=== PATIENT | male | born 1945 | race Caucasian/White ===

== ENCOUNTER 2018-02-03 21:53 | Emergency (ER) | payer MEDICARE ==
[~2018-02-03 21:53] MED LIST: Iopamidol 370 76% 125 ML VIAL FS ONE; Sodium Chloride 0.9% 1,000 ML BAG ONE
[2018-02-03] MEDS ORDERED: Ondansetron PF 4 MG/2 ML Vial ONE (22:13)
[2018-02-03 22:17] LABS: #Basophils 0.1 thou/uL (0.0-0.2); #Eosinphils 0.4 thou/uL (0.0-0.7); #Monocytes 0.5 thou/uL (0.11-0.59); #Neutrophils 4.5 thou/uL (1.40-6.50); %Basophils 1.2 % (0.0-1.0); %Eosinophils 4.9 % (0.0-10.0); %Lymphocytes 27.4 % (21.0-51.0); %Monocytes 6.2 % (0.0-10.0); %Neutrophils 60.3 % (42.0-75.0); Hemoglobin 16.5 g/dL (14.0-18.0); Mean Corpuscular HGB CONC 33.4 g/dL (32.0-36.0); Mean Corpuscular Volume 92.8 fL (78.0-98.0); Mean Platelet Volume 9.8 fL (7.4-10.4); Platelet Count 134 thou/uL (130-400); Red Blood Cell (RBC) Count 5.32 mill/uL (4.70-6.10); White Blood Cell (WBC) Count 7.4 thou/uL (4.8-10.8)
--- NOTE | 2018-02-03 22:18 | RAD ---
CHEST ONE VIEW SEMIUPRIGHT PORTABLE: 02/03/18 HISTORY: 72-year-old male with history of syncope. COMPARISON: 07/10/16. Implantable device overlies the left chest. Heart size is within normal limits. No confluent pneumoni a, overt edema, or pleural effusion. IMPRESSION: No acute intrathoracic disease. Stable from prior study. POS: [facility]
[2018-02-03 22:38] LABS: Anion Gap 19 mmol/L (10-20); BUN (Urea Nitrogen) 31 mg/dL (8.4-25.7); CK (CPK) 454 U/L (30-200); Calc. Creatinine Clearance 0 mL/min (70-130); Calcium 9.5 mg/dL (7.8-10.44); Carbon Dioxide 18 mmol/L (23-31); Chloride 108 mmol/L (98-107); Estimated GFR-MDRD 40; Glucose 183 mg/dL (83-110); Potassium 4.4 mmol/L (3.5-5.1); Sodium 141 mmol/L (136-145)
[2018-02-03 22:39] LABS: Troponin I 0.042 ng/mL (< 0.028)
--- NOTE | 2018-02-03 23:23 | CT ---
BRAIN CT WITHOUT IV CONTRAST: 02/03/18 HISTORY: 72-year-old male with history of syncope. No focal mass or midline shift. No intra or extra-axial hemorrhage. 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 IMPRESSION: No mass, bleed or other acute process. Stable from 07/10/16. POS: [facility]
[2018-02-03] MEDS ORDERED: Enoxaparin Sodium 40 MG/0.4 ML SYRINGE ONE (23:59)
[2018-02-03] MEDS ORDERED: cefTRIAXone\\ROCEPHIN 1 GM VIAL ONE (23:59)
[2018-02-03] MEDS ORDERED: Enoxaparin Sodium 60 MG/0.6 ML SYRINGE ONE (23:59)
--- NOTE | 2018-02-04 11:08 | CT ---
PRELIMINARY REPORT/[facility]/EMERGENCY AFTER HOURS PROCEDURE: Addendum created by Russ Gomes MD on 02/04/2018 1:24 AM Central Time ([place] & [place]) THIS REPORT CONTAINS FINDINGS THAT MAY BE CRITICAL TO PATIENT CARE. The findings were verbally communicated via telephone conference with JOHN Narvaez at 1:09 AM [employer] on 02/04/2018. The findings were acknowl edged and understood. Initial Report created on 02/04/2018 1:14 AM Central Time ([place] & [place]) EXAM: CT Angiography Chest With Intravenous Contrast EXAM DATE/TIME: 02/04/2018 12:19 AM CLINICAL HISTORY: 72 years old, male; Signs and symptoms; Shortness of breath and other: Syncope; Prior surgery; Surger y date: <1 month; Surgery type: C-spine, visible healing scar on back of neck TECHNIQUE: Axial computed tomographic angiography images of the chest with intravenous contrast using CT angiogr aphy protocol. Coronal and sagittal reformatted images were created and reviewed. MIP reconstructed i mages were created and reviewed. CONTRAST: 120 ml of ISOVUE 370 administered intravenously. COMPARISON: No relevant prior studies available. FINDINGS: Pulmonary arteries: Adequate contrast enhancement of the pulmonary arteries. Abnormal filling defects - Thin saddle embolus crosses the main, right and left pulmonary arteries. Numerous emboli within th e right and left pulmonary arterial vessels. Thrombus extends into ascending-descending pulmonary arteries to all lobes and numerous segmental arteries. Aorta: No evidence of thoracic aortic dissection. Lungs: No evidence endobronchial lesion. Mild bilateral lower lobe dependent air space opacityatelect asis/scarring. Pleural space: No evidence of pneumothorax. Heart: Heart appears within normal limits, no pericardial effusion. No evidence of filling defects in the cardiac chambers. Bones/joints: Musculoskeletal structures appear intact. Multi-level degenerative changes involve the thoracic spine. Soft tissues: Unremarkable. Lymph nodes: Few subcentimeter mediastinal lymph nodes. Adrenals: Ovoid 2 x 2.7 cm nodule in left adrenal gland. IMPRESSION: 1. Abnormal study- extensive bilateral pulmonary emboli as described above. 2. No evidence of thoracic aortic dissection. 3. Mild bilateral lower lobe dependent air space opacity-atelectasis/scarring. 4. Ovoid 2 x 2.7 cm nodule in left adrenal gland. Thank you for allowing us to participate in the care of your patient. Dictated and Authenticated by: Russ Gomes MD 02/04/2018 1:14 AM Central Time ([place] & [place]) FINAL REPORT CT ANGIOGRAM CHEST WITH CONTRAST: Date: 02/04/18 HISTORY: Syncope. COMPARISON: None. FINDINGS/IMPRESSION: CT angiogram of chest performed after the intravenous administration of contrast. 3D rendering provid ed. Findings and impression are concordant with the preliminary report by Carla. POS: [facility]
== END 2018-02-04 01:45 | disposition short-term general hospital (02) ==
LOC: MADERS 21:53
DX: I95.9 Hypotension, unspecified (principal); I26.99 Other pulmonary embolism without acute cor pulmonale; R79.89 Other specified abnormal findings of blood chemistry; E78.5 Hyperlipidemia, unspecified; E11.9 Type 2 diabetes mellitus without complications; I10 Essential (primary) hypertension; Z87.891 Personal history of nicotine dependence; Z79.899 Other long term (current) drug therapy; Z79.84 Long term (current) use of oral hypoglycemic drugs; Z79.82 Long term (current) use of aspirin
CPT/HCPCS: 36415; 70450; 71045; 71275; 80048; 82550; 82553; 83605; 83880; 84484; 85025; 85379; 87040; 93005; 94760; 96361; 96365; 96372; 96375; J0696; J1650; J2405; J3370; J7050; J7620

== ENCOUNTER 2018-08-30 14:08 | Emergency (ER) | payer MEDICARE ==
[~2018-08-30 14:08] MED LIST changes: +Iopamidol 370 76% 100 ML VIAL ONE; -Iopamidol 370 76% 125 ML VIAL FS ONE; -Sodium Chloride 0.9% 1,000 ML BAG ONE; +Sodium Chloride 0.9% 100 ML BAG ONE
[2018-08-30] MEDS ORDERED: Acetaminophen 500 MG TAB ONE (14:31)
[2018-08-30] MEDS ORDERED: Cefepime 1 GM VIAL ONE (14:50)
[2018-08-30] MEDS ORDERED: Sodium Chloride 0.9% 1,000 ML ONE (14:50)
[2018-08-30 15:30] LABS: #Basophils 0.1 thou/uL (0.0-0.2); #Eosinphils 0.1 thou/uL (0.0-0.7); #Lymphocytes 0.9 thou/uL (1.20-3.40); #Monocytes 0.7 thou/uL (0.11-0.59); #Neutrophils 10.9 thou/uL (1.40-6.50); %Eosinophils 0.8 % (0.0-10.0); %Lymphocytes 7.2 % (21.0-51.0); %Monocytes 5.6 % (0.0-10.0); %Neutrophils 85.5 % (42.0-75.0); Hemoglobin 16.2 g/dL (14.0-18.0); Mean Corpuscular Hemoglobin 28.9 pg (27.0-31.0); Mean Corpuscular Volume 90.4 fL (78.0-98.0); Mean Platelet Volume 7.9 fL (7.4-10.4); Platelet Count 225 thou/uL (130-400); RBC Distribution Width 12.8 % (11.5-14.5); White Blood Cell (WBC) Count 12.8 thou/uL (4.8-10.8)
[2018-08-30 15:41] LABS: ALT (SGPT) 62 U/L (8-55); AST (SGOT) 38 U/L (5-34); Albumin 4.4 g/dL (3.4-4.8); Alkaline Phosphatase 61 U/L (40-150); Anion Gap 17 mmol/L (10-20); BUN (Urea Nitrogen) 32 mg/dL (8.4-25.7); Bilirubin, Total 0.5 mg/dL (0.2-1.2); Calc. Creatinine Clearance 0 mL/min (70-130); Calcium 9.9 mg/dL (7.8-10.44); Carbon Dioxide 23 mmol/L (23-31); Chloride 102 mmol/L (98-107); Estimated GFR-MDRD 46; Globulin 3.1 g/dL (2.4-3.5); Glucose 152 mg/dL (83-110); Potassium 5.1 mmol/L (3.5-5.1); Protein, Total 7.5 g/dL (5.8-8.1); Sodium 137 mmol/L (136-145)
[2018-08-30 16:00] LABS: Bilirubin Negative (Negative); Blood, Urine Negative (Negative); Clarity Clear (Clear); Glucose, Urine (Dipstick) Negative (Negative); Leukocyte Negative (Negative); Nitrite Negative (Negative); Protein, Urine (Dipstick) Negative (Neg-Trace); Specific Gravity, Urine 1.015 (1.005-1.030); Urobilinogen 0.2 mg/dL (0.2-1.0); pH, Urine 5.5 (5.0-9.0)
--- NOTE | 2018-08-30 16:05 | RAD ---
SINGLE VIEW OF THE CHEST: COMPARISON: 02/03/2018. HISTORY: Fever. FINDINGS: Single view of the chest shows a normal sized cardiomediastinal silhouette. There is no evidence of c onsolidation, mass, or pleural effusion. The bones are unremarkable. IMPRESSION: No evidence of acute cardiopulmonary disease. POS: [facility]
--- NOTE | 2018-08-30 18:33 | CT ---
CT ABDOMEN AND PELVIS WITH AND WITHOUT IV CONTRAST 08/30/2018 CLINICAL INFORMATION: Fever and abnormal laboratory values. History of renal stones and DVT. COMPARISON: CT lumbar spine on 07/10/2016 and CTA chest on 02/04/2018. No prior CT abdomen or pelvis is available . Technique: Multiple contiguous axial CT images are obtained through the abdomen and pelvis with IV contrast. Cor onal reformatted images are provided. FINDINGS: Lower Chest: Minimal dependent bibasilar atelectasis. Vessels: Atherosclerotic calcifications. Abdomen: Portal vein:Patent Gallbladder: Within normal limits for CT imaging. Liver: Diminished attenuation of the liver suggesting fatty infiltration. Spleen: within normal limits. Pancreas: within normal limits. Adrenals: There is a stable hypodense left adrenal mass measuring 2.9 cm unchanged in size compared t o CT lumbar spine in 2017 which suggests a benign finding. Attenuation coefficient on precontrast images is also suggestive of an adrenal adenoma. Right adrenal gland has normal CT appearance. Kidneys: Subcentimeter too small to characterize hypodense lesion is seen in the superior pole left k idney. There is a single nonobstructing renal calculus seen in the inferior pole of each kidney measuring approximately 3 mm on the left and 7 mm on the right. No enhancing renal mass is visualized . Mild cortical scarring is seen involving the midportion of each kidney. Bowel: Small amount of retained fecal material seen throughout the colon. Loops of small bowel are no rmal in caliber. Appendix: The appendix is visualized and normal in caliber. Peritoneum: No ascites or free air; no fluid collection. Mesentery and Retroperitoneum: No enlarged mesenteric or retroperitoneal lymph nodes. Abdominal Wall: within normal limits. Pelvis: Prostate gland: Mildly enlarged measuring 6.1 cm in transverse dimensions. Prostate calcifications ar e seen. Pelvis within normal limits. Bladder: within normal limits. Bones: Multilevel degenerative changes are seen throughout the spine with postsurgical changes involv ing the lower lumbar spine. IMPRESSION: 1. No acute findings are seen in the abdomen or pelvis. 2. Nonobstructing bilateral renal calculi and mild renal cortical scarring bilaterally. 3. Subcentimeter too small to characterize hyperdense lesion superior pole left kidney. 4. Stable left adrenal lesion related to a adrenal adenoma. 5. Mild fatty infiltration of the liver. 6. Enlargement of the prostate gland.
[2018-08-30 18:49] LABS: Lactic Acid 2.8 mmol/L (0.5-2.2)
== END 2018-08-30 19:56 | disposition short-term general hospital (02) ==
LOC: MADERS 14:08
DX: R50.9 Fever, unspecified (principal); E78.5 Hyperlipidemia, unspecified; E11.9 Type 2 diabetes mellitus without complications; I10 Essential (primary) hypertension; Z87.891 Personal history of nicotine dependence; Z79.84 Long term (current) use of oral hypoglycemic drugs; Z79.899 Other long term (current) drug therapy; Z79.82 Long term (current) use of aspirin
CPT/HCPCS: 36415; 71045; 74178; 80053; 81003; 83605; 83880; 84484; 85025; 87040; 87086; 87804; 93005; 96365; 96366; J0692; J3490; J7050; Q9967

== ENCOUNTER 2020-05-04 09:44 | Outpatient (CLI) | payer MEDICARE ==
[2020-05-04 10:35] LABS: AST (SGOT) 25 U/L (5-34); Albumin 4.4 g/dL (3.4-4.8); Alkaline Phosphatase 80 U/L (40-110); Anion Gap 19 mmol/L (10-20); BUN (Urea Nitrogen) 23 mg/dL (8.4-25.7); Bilirubin, Total 0.5 mg/dL (0.2-1.2); Calc. Creatinine Clearance 0 mL/min (70-130); Calcium 9.4 mg/dL (7.8-10.44); Carbon Dioxide 23 mmol/L (23-31); Chloride 103 mmol/L (98-107); Globulin 2.8 g/dL (2.4-3.5); Glucose 141 mg/dL (83-110); Potassium 4.5 mmol/L (3.5-5.1); Protein, Total 7.2 g/dL (5.8-8.1); Sodium 140 mmol/L (136-145)
[2020-05-04 10:47] LABS: #Basophils 0.1 thou/uL (0.0-0.2); #Eosinphils 0.2 thou/uL (0.0-0.7); #Lymphocytes 1.4 thou/uL (1.20-3.40); #Monocytes 0.5 thou/uL (0.11-0.59); #Neutrophils 3.6 thou/uL (1.40-6.50); %Basophils 1.4 % (0.0-1.0); %Eosinophils 3.5 % (0.0-10.0); %Lymphocytes 24.4 % (21.0-51.0); %Monocytes 8.2 % (0.0-10.0); %Neutrophils 62.5 % (42.0-75.0); Hemoglobin 14.3 g/dL (14.0-18.0); Mean Corpuscular HGB CONC 33.1 g/dL (32.0-36.0); Mean Corpuscular Hemoglobin 29.8 pg (27.0-31.0); Mean Platelet Volume 8.1 fL (7.4-10.4); Platelet Count 204 thou/uL (130-400); RBC Distribution Width 12.8 % (11.5-14.5); Red Blood Cell (RBC) Count 4.81 mill/uL (4.70-6.10); White Blood Cell (WBC) Count 5.8 thou/uL (4.8-10.8)
[2020-05-04 11:38] LABS: ALT (SGPT) 33 U/L (8-55)
== END 2020-05-04 09:45 | disposition home or self-care (01) ==
LOC: MADEKG 09:44
PROVIDERS: ATTEND Family Medicine
DX: Z01.818 Encounter for other preprocedural examination (principal)
CPT/HCPCS: 36415; 80053; 85025; 93005; 93010

== ENCOUNTER 2022-11-08 17:03 | Outpatient (CLI) | payer MEDICARE | END 2022-11-08 17:04 | disposition home or self-care (01) | LOC: MADCT 17:03 | PROVIDERS: ATTEND Psychiatry & Neurology Neurology | DX: R29.898 Other symptoms and signs involving the musculoskeletal system (principal); M47.816 Spondylosis without myelopathy or radiculopathy, lumbar region; M48.061 Spinal stenosis, lumbar region without neurogenic claudication; Z98.890 Other specified postprocedural states | CPT/HCPCS: 70450; 72131 ==

== ENCOUNTER 2023-04-14 02:42 | Emergency (ER) | payer MEDICARE ==
[2023-04-14 03:13] LABS: #Basophils 0.1 thou/uL (0.0-0.2); #Lymphocytes 0.5 thou/uL (1.20-3.40); #Monocytes 0.5 thou/uL (0.11-0.59); #Neutrophils 5.1 thou/uL (1.40-6.50); %Basophils 1.8 % (0.0-1.0); %Eosinophils 0.2 % (0.0-10.0); %Monocytes 7.3 % (0.0-10.0); %Neutrophils 82.7 % (42.0-75.0); Hematocrit 42.5 % (42.0-52.0); Hemoglobin 13.7 g/dL (14.0-18.0); Mean Corpuscular HGB CONC 32.2 g/dL (32.0-36.0); Mean Corpuscular Hemoglobin 29.1 pg (27.0-31.0); Mean Corpuscular Volume 90.4 fl (78.0-98.0); Mean Platelet Volume 9.2 fL (7.4-10.4); Platelet Count 210 10x3/uL (130-400); RBC Distribution Width 14.4 % (11.5-14.5); Red Blood Cell (RBC) Count 4.71 mill/uL (4.70-6.10); White Blood Cell (WBC) Count 6.1 10x3/uL (4.8-10.8)
[2023-04-14 03:24] LABS: Bilirubin Negative (Negative); Blood, Urine Negative (Negative); CAUTI Indications for Culture Dysuria,urgency,freq; Clarity Clear (Clear); Glucose, Urine (Dipstick) 500 mg/dL (Negative); Ketone, Urine 15 mg/dL (Negative); Leukocyte Negative (Negative); Nitrite Negative (Negative); Protein, Urine (Dipstick) 30 mg/dL (Neg-Trace); Specific Gravity, Urine 1.015 (1.005-1.030); Squamous Epithelial 0-3 HPF (0-3); Urobilinogen 0.2 mg/dL (Less than 2); WBC/HPF None Seen HPF (0-3)
[2023-04-14 03:25] LABS: Urine Culture Reflex No No
[2023-04-14 03:30] LABS: Base Excess-Venous -0.6 mmol/L (-2.0 to 3.0); Bicarbonate (HCO3v) 25.2 mmol/L (22.0-28.0); CO2 Tension (PvCO2) 44.6 mmHg (42.0-51.0); Calcium, Ionized 1.18 mmol/L (1.15-1.33); Chloride 105 mmol/L (98-107); Hemoglobin - Calc 14.6 g/dL (14.0-18.0); Sodium 143 mmol/L (138-145); T. Carbon Dioxide 26.6 mmol/L (22.0-28.0); vO2 Saturation-calc 96.5 % (60.0-85.0)
[2023-04-14 03:31] LABS: ALT (SGPT) 27 U/L (8-55); AST (SGOT) 21 U/L (5-34); Albumin 4.5 g/dL (3.4-4.8); Alkaline Phosphatase 73 U/L (40-110); Anion Gap 21 mmol/L (10-20); BUN (Urea Nitrogen) 20 mg/dL (8.4-25.7); Bilirubin, Total 0.5 mg/dL (0.2-1.2); Calc. Creatinine Clearance 0 mL/min (70-130); Calcium 9.7 mg/dL (7.8-10.44); Carbon Dioxide 21 mmol/L (23-31); Chloride 103 mmol/L (98-107); Estimated GFR 86; Globulin 2.9 g/dL (2.4-3.5); Glucose 189 mg/dL (83-110); Magnesium 1.6 mg/dL (1.6-2.6); Potassium 4.3 mmol/L (3.5-5.1); Protein, Total 7.4 g/dL (5.8-8.1); Sodium 141 mmol/L (136-145)
[2023-04-14 03:32] LABS: Troponin I Less than 0.010 ng/mL (< 0.028)
[2023-04-14 03:53] LABS: SARS-CoV-2 NAA Rapid Test DETECTED (NotDetected)
[2023-04-14] MEDS ORDERED: cefTRIAXone (ROCEPHIN) 2 GM VIAL ONE (04:38)
[2023-04-14] MEDS ORDERED: Sodium Chloride 0.9% 100 ML ONE (04:39)
[2023-04-14] MEDS ORDERED: Azithromycin 500 MG VIAL ONE (04:52)
[2023-04-14] MEDS ORDERED: Sodium Chloride 0.9% 250 ML 250 ML ONE (04:52)
[2023-04-14 05:59] LABS: Lactic Acid 2.4 mmol/L (0.5-2.2)
== END 2023-04-14 06:54 | disposition short-term general hospital (02) ==
LOC: MADERS 02:42
DX: A41.9 Sepsis, unspecified organism (principal); U07.1 COVID-19; J12.82 Pneumonia due to coronavirus disease 2019; E11.9 Type 2 diabetes mellitus without complications; I10 Essential (primary) hypertension; E78.00 Pure hypercholesterolemia, unspecified; Z79.84 Long term (current) use of oral hypoglycemic drugs; Z79.82 Long term (current) use of aspirin; Z87.891 Personal history of nicotine dependence
CPT/HCPCS: 71045; 80053; 81001; 82330; 82435; 82803; 83605; 83735; 83880; 84132; 84295; 84484; 85014; 85025; 87040; 87086; 87804 ×2; 93005; J0456; U0002; J0696; J3490; J7050